=== PATIENT | female | born 1965 | race African-American/Black ===

== ENCOUNTER → 2017-02-02 | Outpatient (CLI) | payer BC, SELFPAY ==
--- NOTE | ~2017-02-02 | MR18 ---
[facility] A Service [facility] RADIOLOGY TEXT RESULTS PATIENT: ZACK MISHRA LOCATION: [facility] : 63 UNIT #: [id number] AGE: [address]: Huang Sullivan MD SEX: F ORDER DR: [id number] [address] [address] [id number] O MR#: [id number] Acc #: [id number] NAME: ZACK MISHRA : 1965 SEX: F STUDY DATE/TIME: 02/02/2017 10:19 UNIT: [facility] ROOM: STUDY DESCRIPTION: MR Brain Wo Contrast Attending Physician: Huang Zhou M.D. Referring Physician: Huang Zhou M.D. Ordering Physician: Jadon Lawton M.D. Primary Care Physician: Jadon Lawton M.D. MRI CENTER REPORT This report is preliminary unless electronic signature is present. EXAM MRI of the brain without contrast dated 02/02/2017. COMPARISON None HISTORY Left 4th and 5th digit numbness for 9 months. Patient had ulnar relief surgery in December 2016. Left anterior thigh numbness for 9 months now. Possible issues with the neural system in the brain or the spine is being evaluated. FINDINGS Multisequence multiplanar imaging of the brain was obtained without contrast. No acute stroke, space-occupying intracranial mass, mass effect, midline shift or hydrocephalus. Thick slices through the sella with the pituitary gland, pineal region are unremarkable. There is mild disc disease at C3-4 with borderline-sized to mild canal stenosis. IMPRESSION 1. No demonstrable intracranial abnormality. Age-appropriate brain parenchyma is seen. 2. There is mild disc disease at C3-C4 in the limited evaluation of the cervical spine in the lateral brain images. Dictated by... Mercedes Puga M.D. THIS IS AN ELECTRONICALLY VERIFIED REPORT Mercedes Puga M.D. at 02/04/2017 3:13 PM CPR/js [facility] A Service [facility] RADIOLOGY TEXT RESULTS PATIENT: ZACK MISHRA [facility] [id number] : 63 UNIT #: [id number] AGE: [address]: Huang Sullivan MD SEX: F ORDER DR: TD: 02/03/2017 11:20 JOB #: [id number] MRI CENTER REPORT Page 1 of 1
--- NOTE | ~2017-02-02 | MR32 ---
[facility] A Service of [facility] RADIOLOGY TEXT RESULTS PATIENT: ZACK MISHRA LOCATION: [facility] : 63 UNIT #: [id number] AGE: [address]: Huang Sullivan MD SEX: F ORDER DR: [id number] [address] [address] [id number] O MR#: [id number] Acc #: [id number] NAME: ZACK MISHRA : 1965 SEX: F STUDY DATE/TIME: 02/02/2017 10:44 UNIT: [facility] ROOM: STUDY DESCRIPTION: MR Cervical Wo Contrast Attending Physician: Huang Sullivan Referring Physician: Huang Sullivan Ordering Physician: Jadon Lawton M.D. Primary Care Physician: Jadon Lawton M.D. MRI CENTER REPORT This report is preliminary unless electronic signature is present. EXAM MRI of the cervical spine without contrast dated 02/02/2017 COMPARISON MRI brain without contrast dated 02/02/2017 HISTORY Fourth and fifth digit numbness in the left for 9 months even after patient had left ulnar release surgery in December 2016 for it. Left anterior thigh numbness for 9 months. Evaluate for possible abnormality in the brain or cervical spine. FINDINGS Multisequence multiplanar imaging of the cervical spine was obtained without contrast. There is loss of normal cervical curvature. Disc osteophyte complex are at multiple levels. It is most prominent in the xhp-eu-xyfob cervical spine with mild posterior displacement of the cervical cord without obvious cord signal change. C2-3: Mild disc bulge without canal stenosis or neural foraminal narrowing. C3-4: Concentric disc bulge with superimposed central to right foraminal broad-based protrusion which is most prominent in the central and right subarticular region. Associated right uncinate spur is probably present too. There is moderate to severe right neural foraminal narrowing and rpws-ng-lqcfphha canal stenosis. C4-5: Concentric disc bulge with tiny central protrusion. There is borderline size to mild canal stenosis. There is a 6.0 mm increased T2-signal lesions in the posterior aspect of the right neural foramen abutting a normal-appearing right facet joint. STS. [facility] A Service of [facility] RADIOLOGY TEXT RESULTS PATIENT: ZACK MISHRA LOCATION: [facility] : 63 UNIT #: [id number] AGE: [address]: Huang Sullivan MD SEX: F ORDER DR: C5-6: Moderate disc bulge with superimposed central and right subarticular protrusions with right uncinate spur. Severe right neural foraminal narrowing is seen with qwce-uo-xbjidtwq canal stenosis. There is an increased T2-signal lesion measuring about 7.0 mm in the left neural foramen with a smaller component immediately lateral to it. C6-7: Disc osteophyte complex with superimposed left subarticular to foraminal and small central and right subarticular protrusion. Owgmxomm-xm-skcaum canal stenosis is seen. Bilateral uncinate spurs with moderate right and rpqlmdmp-gz-klsprf left neural foraminal narrowing. Bilateral increased T2-signal lesions are noted in the neural foramina, more prominent in the left measuring 8.5 mm. C7-T1: Mild disc bulge without any significant canal stenosis. Increased T2-signal lesions are noted in bilateral neural foramina, tiny in the right and slightly prominent in the left. No canal stenosis or neural foraminal narrowing. T1-2: Increased T2-signal lesions are noted in bilateral neural foramina with a relatively larger one in the left measuring 7.5 mm. IMPRESSION 1. Degenerative changes are noted at multiple levels as described above. 2. It is worse from C3-4 to C6-7 levels with varying degrees of canal stenosis, disc herniations and neural foraminal narrowing. 3. Cord is displaced posteriorly at these levels without cord signal change or severe compression yet. 4. Multilevel increased T2-signal lesions are noted in the neural foramen of the cervical spine. 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 Benign tumors like nerve sheath tumor cannot be excluded without contrast. These measure less than a centimeter in size. Dictated by... Mercedes Puga M.D. THIS IS AN ELECTRONICALLY VERIFIED REPORT Mercedes Pgua M.D. at 02/04/2017 3:13 PM ELIF/maranda TD: 02/03/2017 11:25 JOB #: [id number] MRI CENTER REPORT Page 1 of 1
== END | disposition home or self-care (01) ==
LOC: SRAD 09:49
DX: M54.12 Radiculopathy, cervical region (principal); M50.91 Cervical disc disorder, unspecified, high cervical region; M48.02 Spinal stenosis, cervical region; M47.22 Other spondylosis with radiculopathy, cervical region; M50.11 Cervical disc disorder with radiculopathy, high cervical region; R93.7 Abnormal findings on diagnostic imaging of other parts of musculoskeletal system
CPT/HCPCS: 70551; 72141